=== PATIENT | male | born 1970 | race Caucasian/White ===

== ENCOUNTER 2018-03-22 00:52 | Emergency (ER) | payer SELFPAY ==
[~2018-03-22] VITALS: Ht 172.7 cm; Wt 81.8 kg
[2018-03-22] MEDS ORDERED: AUGMENTIN 875-1 EAC1 PO (02:14)
[2018-03-22] MEDS ORDERED: NORCO 325 MG-51 TA1 PO (02:14)
[2018-03-22 02:27] VITALS: BP 154/90
== END 2018-03-22 02:27 | disposition home or self-care (01) ==
LOC: ED 00:52
DX: K05.219 Aggressive periodontitis, localized, unspecified severity (principal); K03.81 Cracked tooth; K08.89 Other specified disorders of teeth and supporting structures; F17.210 Nicotine dependence, cigarettes, uncomplicated